=== PATIENT | male | born 1965 | race Caucasian/White ===

== ENCOUNTER 2024-03-15 14:12 | Inpatient (IN) | payer BC ==
[2024-03-15 15:58] LABS: HEMOGLOBIN 10.9 g/dL (14.0-18.0); MEAN CORPUSCULAR HEMOGLOBIN 33.1 pg (28.0-32.0); MEAN CORPUSCULAR HGB CONC 35.2 g/dL (32.0-36.0); MEAN CORPUSCULAR VOLUME 94.2 fL (83.0-99.0); MEAN PLATELET VOLUME 10.9 fL (9.4-12.4); PLATELET COUNT,PLT 95 K/uL (150-400); RED BLOOD CELL COUNT 3.29 M/uL (4.52-5.90); WHITE BLOOD CELL COUNT,WBC 19.14 K/uL (3.9-11.3)
[2024-03-15 16:02] LABS: INR 1.47 (0.86-1.11)
[2024-03-15 16:11] LABS: A/G RATIO 0.6 (0.9-1.6); ALBUMIN 2.1 g/dL (3.4-5.0); BILIRUBIN TOTAL 5.1 mg/dL (0.2-1.0); CALCIUM 8.5 mg/dL (8.5-10.1); CARBON DIOXIDE,CO2 28.1 mmol/L (21.0-32.0); CREATININE 1.4 mg/dL (0.8-1.3); EST CRCL DRUG DOSING (CG) 53.12 mL/min; POTASSIUM,K 4.1 mmol/L (3.5-5.1); PROTEIN TOTAL,TP 5.5 g/dL (6.4-8.2)
[2024-03-15 16:31] LABS: BAND ABSOLUTE MAN 0.19; BAND PERCENT MAN 1 %; EOSINOPHILS ABSOLUTE MAN 0.19 K/uL (0.00-0.45); EOSINOPHILS PERCENT MAN 1 % (0-6); LYMPHOCYTES ABSOLUTE MAN 1.34 K/uL (1.00-4.80); LYMPHOCYTES PERCENT MAN 7 % (24-44); MONOCYTES ABSOLUTE MAN 1.15 K/uL (0.00-0.80); MONOCYTES PERCENT MAN 6 % (0-8); SEG NEUTROPHILS ABSOLUTE MAN 16.27 K/uL (1.80-7.70); SEG NEUTROPHILS PERCENT MAN 85 % (41-71)
[2024-03-15] MEDS: cefTRIAXone 2 GM in Sodium Chloride 0.9% 50 ML IV ONE (18:03)
[2024-03-15 18:13] LABS: APPEARANCE,URINE SLT CLOUDY; COLOR,URINE ORANGE; GLUCOSE,URINE NEGATIVE (NEGATIVE); KETONES,URINE NEGATIVE (NEGATIVE); LEUKOCYTE ESTERASE,URINE SMALL (NEGATIVE); NITRITE,URINE POSITIVE (NEGATIVE); OCCULT BLOOD,URINE MODERATE (NEGATIVE); PROTEIN,URINE NEGATIVE (NEGATIVE)
[2024-03-15 18:23] LABS: BILIRUBIN,URINE MODERATE (NEGATIVE)
[2024-03-15 18:25] LABS: BACTERIA,URINE MANY (NEGATIVE); EPITHELIAL CELLS,URINE MODERATE (NONE-FEW)
[2024-03-15] MEDS ORDERED: Ondansetron 4 MG Tab.DIS PO PRN (18:40)
[2024-03-15] MEDS: Doxycycline 100 MG in Sodium Chloride 0.9% 100 ML IV ONE (18:54)
[2024-03-15] MEDS: VANCOmycin 1.5 GM/300 ML 1.5 GM in Premix Bag 1 BAG IV SCH (20:21)
[2024-03-15] MEDS: Sodium Chloride 0.9% 1,000 ML IV ONE (20:30)
[2024-03-15] MEDS ORDERED: Enoxaparin 40 MG/0.4 ML Syringe SUBCUT SCH (21:00)
[2024-03-16 00:44] LABS: LACTIC ACID 2.5 mmol/L (0.4-2.0)
[2024-03-16 06:22] LABS: HEMATOCRIT 26.8 % (42.0-52.0); HEMOGLOBIN 9.5 g/dL (14.0-18.0); MEAN CORPUSCULAR HEMOGLOBIN 33.9 pg (28.0-32.0); MEAN CORPUSCULAR HGB CONC 35.4 g/dL (32.0-36.0); MEAN CORPUSCULAR VOLUME 95.7 fL (83.0-99.0); MEAN PLATELET VOLUME 10.8 fL (9.4-12.4); PLATELET COUNT,PLT 99 K/uL (150-400); WHITE BLOOD CELL COUNT,WBC 15.38 K/uL (3.9-11.3)
[2024-03-16 06:36] LABS: INR 1.45 (0.86-1.11)
[2024-03-16 06:49] LABS: A/G RATIO 0.6 (0.9-1.6); ALBUMIN 1.8 g/dL (3.4-5.0); CALCIUM 7.9 mg/dL (8.5-10.1); CARBON DIOXIDE,CO2 25.9 mmol/L (21.0-32.0); CREATININE 1.3 mg/dL (0.8-1.3); EST CRCL DRUG DOSING (CG) 55.21 mL/min; MAGNESIUM 1.5 mg/dL (1.8-2.4); PHOSPHORUS 2.2 mg/dL (2.6-4.7)
[2024-03-16 07:03] LABS: BASOPHILS PERCENT MAN 0 % (0-1); EOSINOPHILS PERCENT MAN 0 % (0-6); LYMPHOCYTES ABSOLUTE MAN 1.54 K/uL (1.00-4.80); LYMPHOCYTES PERCENT MAN 10 % (24-44); MONOCYTES ABSOLUTE MAN 2.15 K/uL (0.00-0.80); MONOCYTES PERCENT MAN 14 % (0-8); SEG NEUTROPHILS ABSOLUTE MAN 11.69 K/uL (1.80-7.70); SEG NEUTROPHILS PERCENT MAN 76 % (41-71)
[2024-03-16] MEDS: Acetaminophen 325 MG Tab PO PRN (07:58)
[2024-03-16] MEDS: Spironolactone 25 MG Tab PO SCH (10:40)
[2024-03-16] MEDS: Magnesium Sulfate/Water Premix 4 GM in Premix Bag 1 BAG IV ONE (10:40)
[2024-03-16] MEDS: Furosemide 40 MG Tab PO SCH (10:41)
[2024-03-16] MEDS: cefTRIAXone 2 GM in Sodium Chloride 0.9% 50 ML IV SCH (17:41)
[2024-03-17 06:25] LABS: HEMATOCRIT 26.9 % (42.0-52.0); HEMOGLOBIN 9.3 g/dL (14.0-18.0); MEAN CORPUSCULAR HEMOGLOBIN 33.3 pg (28.0-32.0); MEAN CORPUSCULAR HGB CONC 34.6 g/dL (32.0-36.0); MEAN CORPUSCULAR VOLUME 96.4 fL (83.0-99.0); MEAN PLATELET VOLUME 10.7 fL (9.4-12.4); PLATELET COUNT,PLT 102 K/uL (150-400); RED BLOOD CELL COUNT 2.79 M/uL (4.52-5.90); WHITE BLOOD CELL COUNT,WBC 18.47 K/uL (3.9-11.3)
[2024-03-17 06:37] LABS: INR 1.42 (0.86-1.11)
[2024-03-17 06:43] LABS: SEG NEUTROPHILS ABSOLUTE MAN 16.07 K/uL (1.80-7.70); SEG NEUTROPHILS PERCENT MAN 87 % (41-71)
[2024-03-17 06:44] LABS: EOSINOPHILS ABSOLUTE MAN 0.18 K/uL (0.00-0.45); EOSINOPHILS PERCENT MAN 1 % (0-6); LYMPHOCYTES ABSOLUTE MAN 0.92 K/uL (1.00-4.80); LYMPHOCYTES PERCENT MAN 5 % (24-44); MONOCYTES ABSOLUTE MAN 1.29 K/uL (0.00-0.80); MONOCYTES PERCENT MAN 7 % (0-8)
[2024-03-17 06:46] LABS: A/G RATIO 0.4 (0.9-1.6); ALBUMIN 1.5 g/dL (3.4-5.0); BILIRUBIN TOTAL 2.9 mg/dL (0.2-1.0); CALCIUM 7.9 mg/dL (8.5-10.1); CARBON DIOXIDE,CO2 26.6 mmol/L (21.0-32.0); CREATININE 1.2 mg/dL (0.8-1.3); EST CRCL DRUG DOSING (CG) 59.81 mL/min; MAGNESIUM 1.6 mg/dL (1.8-2.4); PHOSPHORUS 2.5 mg/dL (2.6-4.7); PROTEIN TOTAL,TP 4.9 g/dL (6.4-8.2)
[2024-03-17] MEDS: Magnesium Sulfate/Water Premix 4 GM in Premix Bag 1 BAG IV ONE (10:01)
[2024-03-17] MEDS: ceFAZolin 2 GM in Sodium Chloride 0.9% 50 ML IV SCH (11:59)
[2024-03-18 06:05] LABS: HEMATOCRIT 26.6 % (42.0-52.0); HEMOGLOBIN 9.5 g/dL (14.0-18.0); MEAN CORPUSCULAR HEMOGLOBIN 34.2 pg (28.0-32.0); MEAN CORPUSCULAR HGB CONC 35.7 g/dL (32.0-36.0); MEAN CORPUSCULAR VOLUME 95.7 fL (83.0-99.0); MEAN PLATELET VOLUME 10.5 fL (9.4-12.4); PLATELET COUNT,PLT 113 K/uL (150-400); RED BLOOD CELL COUNT 2.78 M/uL (4.52-5.90); WHITE BLOOD CELL COUNT,WBC 21.46 K/uL (3.9-11.3)
[2024-03-18 06:32] LABS: A/G RATIO 0.4 (0.9-1.6); ALBUMIN 1.6 g/dL (3.4-5.0); BILIRUBIN TOTAL 2.7 mg/dL (0.2-1.0); CALCIUM 7.9 mg/dL (8.5-10.1); CARBON DIOXIDE,CO2 27.7 mmol/L (21.0-32.0); CREATININE 1.2 mg/dL (0.8-1.3); EST CRCL DRUG DOSING (CG) 59.81 mL/min; MAGNESIUM 1.7 mg/dL (1.8-2.4); PHOSPHORUS 2.8 mg/dL (2.6-4.7); POTASSIUM,K 3.6 mmol/L (3.5-5.1); PROTEIN TOTAL,TP 5.2 g/dL (6.4-8.2)
[2024-03-18 06:36] LABS: BAND ABSOLUTE MAN 0.21; BAND PERCENT MAN 1 %; SEG NEUTROPHILS PERCENT MAN 89 % (41-71)
[2024-03-18 06:37] LABS: EOSINOPHILS ABSOLUTE MAN 0.21 K/uL (0.00-0.45); EOSINOPHILS PERCENT MAN 1 % (0-6); LYMPHOCYTES ABSOLUTE MAN 1.07 K/uL (1.00-4.80); LYMPHOCYTES PERCENT MAN 5 % (24-44); MONOCYTES ABSOLUTE MAN 0.86 K/uL (0.00-0.80); MONOCYTES PERCENT MAN 4 % (0-8)
[2024-03-18] MEDS: Magnesium Sulfate/Water Premix 2 GM in Premix Bag 1 BAG IV ONE (09:29)
[2024-03-18] MEDS: Furosemide 40 MG/4 ML VIAL IVPUSH ONE (14:59)
[2024-03-18] MEDS: Lactulose Soln 10 GM/15 ML 15 ML UD Cup PO ONE ×2 (14:59→16:53)
[2024-03-18] MEDS: Allopurinol 100 MG Tab PO SCH (15:04)
[2024-03-18] MEDS: Melatonin 3 MG Tab PO PRN (20:22)
[2024-03-19] MEDS: Melatonin 3 MG Tab PO PRN ×2 (00:39→22:22)
[2024-03-19] MEDS: Ibuprofen 400 MG Tab PO PRN (02:56)
[2024-03-19 05:58] LABS: HEMATOCRIT 25.5 % (42.0-52.0); MEAN CORPUSCULAR HGB CONC 35.3 g/dL (32.0-36.0); MEAN CORPUSCULAR VOLUME 96.2 fL (83.0-99.0); MEAN PLATELET VOLUME 10.2 fL (9.4-12.4); PLATELET COUNT,PLT 113 K/uL (150-400); RED BLOOD CELL COUNT 2.65 M/uL (4.52-5.90)
[2024-03-19 06:17] LABS: LYMPHOCYTES ABSOLUTE MAN 0.68 K/uL (1.00-4.80); LYMPHOCYTES PERCENT MAN 3 % (24-44); MONOCYTES PERCENT MAN 8 % (0-8); SEG NEUTROPHILS ABSOLUTE MAN 20.03 K/uL (1.80-7.70); SEG NEUTROPHILS PERCENT MAN 89 % (41-71)
[2024-03-19 06:25] LABS: A/G RATIO 0.4 (0.9-1.6); ALBUMIN 1.5 g/dL (3.4-5.0); BILIRUBIN TOTAL 2.7 mg/dL (0.2-1.0); CALCIUM 7.7 mg/dL (8.5-10.1); CARBON DIOXIDE,CO2 26.5 mmol/L (21.0-32.0); CREATININE 1.2 mg/dL (0.8-1.3); EST CRCL DRUG DOSING (CG) 59.81 mL/min; MAGNESIUM 1.6 mg/dL (1.8-2.4); PHOSPHORUS 3.1 mg/dL (2.6-4.7); POTASSIUM,K 3.9 mmol/L (3.5-5.1)
[2024-03-19] MEDS: Magnesium Sulfate/Water Premix 4 GM in Premix Bag 1 BAG IV ONE (07:20)
[2024-03-19] MEDS ORDERED: Pantoprazole 40 MG Tab.CR PO SCH (10:15)
[2024-03-19] MEDS: Lidocaine 4% 1 each Patch TOP SCH (10:45)
[2024-03-19] MEDS: Pantoprazole 40 MG Tab.CR PO SCH (11:25)
[2024-03-19] MEDS: Furosemide 40 MG/4 ML VIAL IVPUSH SCH ×2 (11:30→14:29)
[2024-03-20 06:23] LABS: HEMATOCRIT 26.6 % (42.0-52.0); HEMOGLOBIN 9.2 g/dL (14.0-18.0); MEAN CORPUSCULAR HEMOGLOBIN 33.7 pg (28.0-32.0); MEAN CORPUSCULAR HGB CONC 34.6 g/dL (32.0-36.0); MEAN CORPUSCULAR VOLUME 97.4 fL (83.0-99.0); MEAN PLATELET VOLUME 10.5 fL (9.4-12.4); PLATELET COUNT,PLT 130 K/uL (150-400); RED BLOOD CELL COUNT 2.73 M/uL (4.52-5.90); WHITE BLOOD CELL COUNT,WBC 17.29 K/uL (3.9-11.3)
[2024-03-20 06:45] LABS: ALBUMIN 1.4 g/dL (3.4-5.0); BILIRUBIN TOTAL 2.5 mg/dL (0.2-1.0); CALCIUM 7.9 mg/dL (8.5-10.1); CARBON DIOXIDE,CO2 27.9 mmol/L (21.0-32.0); CREATININE 1.2 mg/dL (0.8-1.3); EST CRCL DRUG DOSING (CG) 59.81 mL/min; PHOSPHORUS 3.5 mg/dL (2.6-4.7); POTASSIUM,K 3.9 mmol/L (3.5-5.1); PROTEIN TOTAL,TP 5.4 g/dL (6.4-8.2)
[2024-03-20 06:46] LABS: A/G RATIO 0.4 (0.9-1.6)
[2024-03-20 06:49] LABS: EOSINOPHILS ABSOLUTE MAN 0.52 K/uL (0.00-0.45); EOSINOPHILS PERCENT MAN 3 % (0-6); LYMPHOCYTES ABSOLUTE MAN 0.86 K/uL (1.00-4.80); LYMPHOCYTES PERCENT MAN 5 % (24-44); MONOCYTES ABSOLUTE MAN 1.04 K/uL (0.00-0.80); MONOCYTES PERCENT MAN 6 % (0-8); SEG NEUTROPHILS ABSOLUTE MAN 14.87 K/uL (1.80-7.70); SEG NEUTROPHILS PERCENT MAN 86 % (41-71)
[2024-03-20] MEDS: VANCOmycin 1.5 GM/300 ML 1.5 GM in Premix Bag 1 BAG IV SCH (21:43)
[2024-03-21 06:40] LABS: BASOPHILS ABSOLUTE AUTO 0.07 K/uL (0.00-0.20); BASOPHILS PERCENT AUTO 0.5 % (0.0-1.0); EOSINOPHILS ABSOLUTE AUTO 0.24 K/uL (0.00-0.45); EOSINOPHILS PERCENT AUTO 1.6 % (0.0-6.0); HEMATOCRIT 26.2 % (42.0-52.0); IMMATURE GRAN ABSOLUTE AUTO 0.26 K/uL (0.00-0.05); IMMATURE GRAN PERCENT AUTO 1.8 % (0.0-0.4); LYMPHOCYTES ABSOLUTE AUTO 1.24 K/uL (1.00-4.80); LYMPHOCYTES PERCENT AUTO 8.5 % (24.0-44.0); MEAN CORPUSCULAR HEMOGLOBIN 33.8 pg (28.0-32.0); MEAN CORPUSCULAR HGB CONC 34.4 g/dL (32.0-36.0); MEAN CORPUSCULAR VOLUME 98.5 fL (83.0-99.0); MEAN PLATELET VOLUME 10.2 fL (9.4-12.4); MONOCYTES ABSOLUTE AUTO 1.49 K/uL (0.00-0.80); MONOCYTES PERCENT AUTO 10.2 % (0.0-8.0); NEUTROPHILS ABSOLUTE AUTO 11.36 K/uL (1.80-7.70); NEUTROPHILS PERCENT AUTO 77.4 % (41.0-71.0); PLATELET COUNT,PLT 121 K/uL (150-400); RED BLOOD CELL COUNT 2.66 M/uL (4.52-5.90); WHITE BLOOD CELL COUNT,WBC 14.66 K/uL (3.9-11.3)
[2024-03-21 07:03] LABS: A/G RATIO 0.3 (0.9-1.6); ALBUMIN 1.4 g/dL (3.4-5.0); BILIRUBIN TOTAL 2.5 mg/dL (0.2-1.0); CALCIUM 7.9 mg/dL (8.5-10.1); CARBON DIOXIDE,CO2 27.5 mmol/L (21.0-32.0); CREATININE 1.3 mg/dL (0.8-1.3); EST CRCL DRUG DOSING (CG) 55.21 mL/min; MAGNESIUM 1.5 mg/dL (1.8-2.4); PHOSPHORUS 2.6 mg/dL (2.6-4.7); POTASSIUM,K 3.9 mmol/L (3.5-5.1); PROTEIN TOTAL,TP 5.9 g/dL (6.4-8.2)
[2024-03-21] MEDS: Magnesium Sulfate/Water 2 GM/50 ML Premix Bag IV ONE (08:06)
[2024-03-21 08:15] LABS: HEMATOCRIT 26.2 % (42.0-52.0); HEMOGLOBIN 9.1 g/dL (14.0-18.0); MEAN CORPUSCULAR HEMOGLOBIN 34.2 pg (28.0-32.0); MEAN CORPUSCULAR HGB CONC 34.7 g/dL (32.0-36.0); MEAN CORPUSCULAR VOLUME 98.5 fL (83.0-99.0); MEAN PLATELET VOLUME 10.3 fL (9.4-12.4); PLATELET COUNT,PLT 140 K/uL (150-400); RED BLOOD CELL COUNT 2.66 M/uL (4.52-5.90); WHITE BLOOD CELL COUNT,WBC 14.76 K/uL (3.9-11.3)
[2024-03-21] MEDS: Magnesium Sulfate/Water Premix 2 GM in Premix Bag 1 BAG IV ONE (08:19)
[2024-03-21 09:02] LABS: BAND ABSOLUTE MAN 0.15; BAND PERCENT MAN 1 %; EOSINOPHILS PERCENT MAN 2 % (0-6); LYMPHOCYTES ABSOLUTE MAN 0.59 K/uL (1.00-4.80); LYMPHOCYTES PERCENT MAN 4 % (24-44); MONOCYTES ABSOLUTE MAN 0.89 K/uL (0.00-0.80); MONOCYTES PERCENT MAN 6 % (0-8); SEG NEUTROPHILS ABSOLUTE MAN 12.84 K/uL (1.80-7.70); SEG NEUTROPHILS PERCENT MAN 87 % (41-71)
[2024-03-22 06:19] LABS: BASOPHILS ABSOLUTE AUTO 0.05 K/uL (0.00-0.20); BASOPHILS PERCENT AUTO 0.5 % (0.0-1.0); EOSINOPHILS ABSOLUTE AUTO 0.25 K/uL (0.00-0.45); EOSINOPHILS PERCENT AUTO 2.3 % (0.0-6.0); HEMATOCRIT 25.1 % (42.0-52.0); HEMOGLOBIN 8.3 g/dL (14.0-18.0); IMMATURE GRAN ABSOLUTE AUTO 0.16 K/uL (0.00-0.05); IMMATURE GRAN PERCENT AUTO 1.5 % (0.0-0.4); LYMPHOCYTES ABSOLUTE AUTO 1.02 K/uL (1.00-4.80); LYMPHOCYTES PERCENT AUTO 9.5 % (24.0-44.0); MEAN CORPUSCULAR HEMOGLOBIN 33.1 pg (28.0-32.0); MEAN CORPUSCULAR HGB CONC 33.1 g/dL (32.0-36.0); MEAN PLATELET VOLUME 10.1 fL (9.4-12.4); MONOCYTES ABSOLUTE AUTO 1.13 K/uL (0.00-0.80); MONOCYTES PERCENT AUTO 10.5 % (0.0-8.0); NEUTROPHILS ABSOLUTE AUTO 8.16 K/uL (1.80-7.70); NEUTROPHILS PERCENT AUTO 75.7 % (41.0-71.0); PLATELET COUNT,PLT 114 K/uL (150-400); RED BLOOD CELL COUNT 2.51 M/uL (4.52-5.90); WHITE BLOOD CELL COUNT,WBC 10.77 K/uL (3.9-11.3)
[2024-03-22 06:52] LABS: A/G RATIO 0.3 (0.9-1.6); ALBUMIN 1.2 g/dL (3.4-5.0); BILIRUBIN TOTAL 2.7 mg/dL (0.2-1.0); CALCIUM 8.1 mg/dL (8.5-10.1); CARBON DIOXIDE,CO2 26.9 mmol/L (21.0-32.0); CREATININE 1.4 mg/dL (0.8-1.3); EST CRCL DRUG DOSING (CG) 51.27 mL/min; POTASSIUM,K 3.9 mmol/L (3.5-5.1); PROTEIN TOTAL,TP 5.5 g/dL (6.4-8.2)
[2024-03-22] MEDS: Magnesium Sulfate/Water Premix 2 GM in Premix Bag 1 BAG IV ONE ×2 (17:18→19:25)
[2024-03-23 06:38] LABS: BASOPHILS ABSOLUTE AUTO 0.06 K/uL (0.00-0.20); BASOPHILS PERCENT AUTO 0.7 % (0.0-1.0); EOSINOPHILS ABSOLUTE AUTO 0.23 K/uL (0.00-0.45); EOSINOPHILS PERCENT AUTO 2.5 % (0.0-6.0); HEMATOCRIT 25.3 % (42.0-52.0); HEMOGLOBIN 8.3 g/dL (14.0-18.0); IMMATURE GRAN ABSOLUTE AUTO 0.13 K/uL (0.00-0.05); IMMATURE GRAN PERCENT AUTO 1.4 % (0.0-0.4); LYMPHOCYTES ABSOLUTE AUTO 1.15 K/uL (1.00-4.80); LYMPHOCYTES PERCENT AUTO 12.6 % (24.0-44.0); MEAN CORPUSCULAR HEMOGLOBIN 33.1 pg (28.0-32.0); MEAN CORPUSCULAR HGB CONC 32.8 g/dL (32.0-36.0); MEAN CORPUSCULAR VOLUME 100.8 fL (83.0-99.0); MEAN PLATELET VOLUME 10.3 fL (9.4-12.4); MONOCYTES ABSOLUTE AUTO 1.08 K/uL (0.00-0.80); MONOCYTES PERCENT AUTO 11.9 % (0.0-8.0); NEUTROPHILS ABSOLUTE AUTO 6.46 K/uL (1.80-7.70); NEUTROPHILS PERCENT AUTO 70.9 % (41.0-71.0); PLATELET COUNT,PLT 138 K/uL (150-400); RED BLOOD CELL COUNT 2.51 M/uL (4.52-5.90); WHITE BLOOD CELL COUNT,WBC 9.11 K/uL (3.9-11.3)
[2024-03-23 07:03] LABS: A/G RATIO 0.3 (0.9-1.6); ALBUMIN 1.4 g/dL (3.4-5.0); BILIRUBIN TOTAL 2.8 mg/dL (0.2-1.0); CALCIUM 8.1 mg/dL (8.5-10.1); CARBON DIOXIDE,CO2 25.9 mmol/L (21.0-32.0); CREATININE 1.5 mg/dL (0.8-1.3); EST CRCL DRUG DOSING (CG) 47.85 mL/min; POTASSIUM,K 3.7 mmol/L (3.5-5.1); PROTEIN TOTAL,TP 6.1 g/dL (6.4-8.2); URIC ACID 13.3 mg/dL (2.6-7.2)
[2024-03-23] MEDS: cefTRIAXone 2 GM in Sodium Chloride 0.9% 50 ML IV SCH (14:59)
[2024-03-23] MEDS ORDERED: cefTRIAXone 2 GM in Sodium Chloride 0.9% 50 ML IV SCH (17:30)
== END 2024-03-23 16:43 | disposition home or self-care (01) | DRG 383 ==
LOC: MW.ED 14:12 → OBSVTOIN 17:59 → MW.MS 17:59
PROVIDERS: ADMIT Internal Medicine; ATTEND Internal Medicine
DX: L03.116 Cellulitis of left lower limb (principal); N18.9 Chronic kidney disease, unspecified; R78.81 Bacteremia; N39.0 Urinary tract infection, site not specified; K70.30 Alcoholic cirrhosis of liver without ascites; D69.6 Thrombocytopenia, unspecified; M71.22 Synovial cyst of popliteal space [Baker], left knee; M25.532 Pain in left wrist; M1A.0320 Idiopathic chronic gout, left wrist, without tophus (tophi); Z91.012 Allergy to eggs; Z91.013 Allergy to seafood; Z91.018 Allergy to other foods; Z79.899 Other long term (current) drug therapy; Z91.148 Patient's other noncompliance with medication regimen for other reason
CPT/HCPCS: 36415; 73110-26-LT; 73110-LT; 73610-26-LT; 73610-LT; 73630-26-LT; 73630-LT; 80053; 80202; 81001; 82140; 82947; 83605; 83735; 84100; 84550; 85025; 85610; 85652; 86140; 87040; 87077; 87086; 87088; 87147; 87154; 87186; 93306; 93971-26-LT; 93971-LT; 96361; 96365; 96366; 96376; 97110-GP; 97140-GO; 97163-GP; 97165-GO; 97530-GP; 99283; 99285-25; A9270-GY; G0378; J0690; J0696; J1940; J3372; J3475; J3490; J7030

== ENCOUNTER 2024-04-06 17:19 | Emergency (ER) | payer BC ==
[2024-04-06] MEDS ORDERED: Sodium Chloride 0.9% 10 ML Syringe FLUSH PRN (17:30)
[2024-04-06] MEDS ORDERED: Sodium Chloride 0.9% 2.5 ML Syringe FLUSH PRN (17:30)
[2024-04-06] MEDS: Sodium Chloride 0.9% 1,000 ML IV ONE (17:53)
[2024-04-06 17:57] LABS: BASOPHILS ABSOLUTE AUTO 0.06 K/uL (0.00-0.20); BASOPHILS PERCENT AUTO 0.5 % (0.0-1.0); EOSINOPHILS ABSOLUTE AUTO 0.43 K/uL (0.00-0.45); EOSINOPHILS PERCENT AUTO 3.6 % (0.0-6.0); HEMATOCRIT 26.1 % (42.0-52.0); HEMOGLOBIN 8.9 g/dL (14.0-18.0); IMMATURE GRAN ABSOLUTE AUTO 0.07 K/uL (0.00-0.05); IMMATURE GRAN PERCENT AUTO 0.6 % (0.0-0.4); LYMPHOCYTES ABSOLUTE AUTO 0.59 K/uL (1.00-4.80); LYMPHOCYTES PERCENT AUTO 4.9 % (24.0-44.0); MEAN CORPUSCULAR HEMOGLOBIN 35.3 pg (28.0-32.0); MEAN CORPUSCULAR HGB CONC 34.1 g/dL (32.0-36.0); MEAN CORPUSCULAR VOLUME 103.6 fL (83.0-99.0); MEAN PLATELET VOLUME 10.2 fL (9.4-12.4); MONOCYTES ABSOLUTE AUTO 1.15 K/uL (0.00-0.80); MONOCYTES PERCENT AUTO 9.6 % (0.0-8.0); NEUTROPHILS ABSOLUTE AUTO 9.65 K/uL (1.80-7.70); NEUTROPHILS PERCENT AUTO 80.8 % (41.0-71.0); PLATELET COUNT,PLT 102 K/uL (150-400); RED BLOOD CELL COUNT 2.52 M/uL (4.52-5.90); WHITE BLOOD CELL COUNT,WBC 11.95 K/uL (3.9-11.3)
[2024-04-06 18:01] LABS: LACTIC ACID 3.8 mmol/L (0.4-2.0)
[2024-04-06 18:07] LABS: A/G RATIO 0.3 (0.9-1.6); ALBUMIN 1.7 g/dL (3.4-5.0); BILIRUBIN TOTAL 3.1 mg/dL (0.2-1.0); CALCIUM 8.2 mg/dL (8.5-10.1); CARBON DIOXIDE,CO2 19.9 mmol/L (21.0-32.0); CREATININE 3.4 mg/dL (0.8-1.3); EST CRCL DRUG DOSING (CG) 21.87 mL/min; INR 1.59 (0.86-1.11); POTASSIUM,K 5.2 mmol/L (3.5-5.1); PROTEIN TOTAL,TP 6.7 g/dL (6.4-8.2); PTT,PARTIAL THROMBOPLSTIN TIME 31.2 SEC (23.9-30.7)
[2024-04-06] MEDS: Piperacillin/Tazobactam 4.5 GM in Sodium Chloride 0.9% 100 ML IV ONE (19:21)
[2024-04-06 20:17] LABS: PERCENT FE SATURATION 79.38 % (20-55)
[2024-04-06] MEDS: Morphine 2 MG/ML SYRINGE IVPUSH ONE (20:21)
[2024-04-06] MEDS: VANCOmycin 1.5 GM/300 ML 1.5 GM in Premix Bag 1 BAG IV ONE (20:29)
[2024-04-06 21:26] LABS: APPEARANCE,URINE SLT CLOUDY; COLOR,URINE YELLOW; GLUCOSE,URINE NEGATIVE (NEGATIVE); KETONES,URINE NEGATIVE (NEGATIVE); LEUKOCYTE ESTERASE,URINE NEGATIVE (NEGATIVE); NITRITE,URINE NEGATIVE (NEGATIVE); OCCULT BLOOD,URINE MODERATE (NEGATIVE); PH,URINE 5.5 (5.0-8.0); PROTEIN,URINE 100 mg/dL (NEGATIVE); UROBILINOGEN,URINE 0.2 EU/dL (<2.0)
[2024-04-06 21:27] LABS: BILIRUBIN,URINE MODERATE (NEGATIVE)
[2024-04-06 21:53] LABS: BACTERIA,URINE 1+ (NEGATIVE); HYALINE CASTS,URINE 0-1 (0-2/LPF); MUCUS,URINE LIGHT (NONE-MOD); RBC,URINE 40-50 (0-2/HPF); SQUAMOUS EPITHELIAL CELLS,UR MODERATE
== END 2024-04-07 00:43 ==
LOC: MW.ED 17:19
DX: A41.9 Sepsis, unspecified organism (principal); D65 Disseminated intravascular coagulation [defibrination syndrome]; N17.9 Acute kidney failure, unspecified; E72.20 Disorder of urea cycle metabolism, unspecified; L03.114 Cellulitis of left upper limb; Z79.899 Other long term (current) drug therapy; Z75.8 Other problems related to medical facilities and other health care
CPT/HCPCS: 36415; 70450; 80053; 81001; 82140; 82728; 83550; 83605; 83690; 83735; 83880; 84550; 85025; 85610; 85730; 87040; 87428; 93005; 93971; 96361; 96365; 96367; 96375; 99285; J2270; J2543; J3372; J3490; J7030; 93010; 99284